=== PATIENT | female | born 1990 | race Caucasian/White ===

== ENCOUNTER 2021-07-18 08:06 | Outpatient (CLI) | payer BC, SELFPAY ==
--- NOTE | ~2021-07-18 | XR_ITS ---
EXAMINATION: XR hysterosalpingogram DATE: 07/18/2021 08:48 INDICATION: Infertility. TECHNIQUE: Fluoroscopy was performed by the radiologist during contrast infusion into the endometrial cavity of the uterus by the primary physician. Fluoroscopy exposure time was 0.2 minutes. The total number of images was 6. FINDINGS: The intrauterine cavity is normal in morphology. The fallopian tubes are normal in caliber. There is normal free intraperitoneal spillage of contrast on either side. IMPRESSION: 1. Normal hysterosalpingogram. Reviewed, dictated and finalized at location A. NG TABLE OPERATOR
== END 2021-07-18 08:07 | disposition home or self-care (01) ==
LOC: ANHIMG 08:17
PROVIDERS: PCP Family Medicine Adolescent Medicine; Visit Provider Obstetrics & Gynecology
DX: Z31.41 Encounter for fertility testing (principal)
CPT/HCPCS: 58340; 74740; Q9966

== ENCOUNTER 2021-09-24 14:43 | Outpatient (CLI) | payer BC, SELFPAY ==
--- NOTE | ~2021-09-24 | US_ITS ---
EXAMINATION: US OB <= 14 weeks fetus DATE: 09/24/2021 15:18 INDICATION: during first trimester with prior infertility. Establish dating of . TECHNIQUE: Real-time pelvic ultrasound utilizing transabdominal probe was performed. The kevin allred radiologist was not present for the study. COMPARISON: None. FINDINGS: The uterus measures 8.8 x 5.8 x 4.8 cm. There is an intrauterine gestational sac. A yolk sac and fet al pole are identified. The crown rump length measures 1.2 cm, which correlates with an estimated ges tational age of 7 weeks and 3 days. heart motion is identified measuring 138 beats per minute ( bpm) by M-mode Doppler. The right ovary measures 2.8 x 2.4 x 2.2 and contains a 1.3 cm anechoic cyst. Vascular flow with marlen rial waveform in the right ovary on color Doppler. The left ovary is not visualized. There is no free fluid in the pelvis. IMPRESSION: 1. Single living fetus with heart rate of 138 bpm. 2. Gestational age by ultrasound of 7 weeks 3 day(s) +/- 5 day(s) with ultrasound estimated date of delivery (VETO) of 05/10/2022. Reviewed, dictated and finalized at location A. GE ACCOUNTS AUDIT CLERK IMPRESSION: 1. Single living fetus with heart rate of 138 bpm. 2. Gestational age by ultrasound of 7 weeks 3 day(s) +/- 5 day(s) with ultraso und estimated date of delivery (VETO) of 05/10/2022.
== END 2021-09-24 14:44 | disposition home or self-care (01) ==
LOC: ANHIMG 14:44
PROVIDERS: PCP Family Medicine Adolescent Medicine; Visit Provider Obstetrics & Gynecology Gynecology
DX: O09.01 Supervision of pregnancy with history of infertility, first trimester (principal); Z3A.01 Less than 8 weeks gestation of pregnancy
CPT/HCPCS: 76801

== ENCOUNTER 2025-05-23 19:28 | Emergency (ER) | payer BC, SELFPAY ==
--- OUTSIDE RECORDS SUMMARY | 2025-05-23 19:30 | XMS_ITS | Clinical Summary ---
Author Organization [facility] Address [address] [place] [address] Care Team Providers Care Economics Consultant Name Role Phone No, Physician Primary Care Provider [phone] Joseph Ray MD Unavailable [phone] Ed Canela MD Unavailable + Kimberli Barrett MD Unavailable [phone] Allergies No known active allergies Medications vit 58-sird-ylrln-d smiley 27mg iron- 800 mcg-250 mg capsule Take by mouth Active acetaminophen (TYLENOL) 325 mg tablet Take 2 tablets (650 mg total) by mouth every 6 (six) hours as needed for pain 30 tablet 1 4 Active Additional Information Patient not taking.Reported on 06/16/2024 docusate sodium (COLACE) 100 mg capsuleIndicati ons:constipatio n,Stool Softener Take 1 capsule (100 mg total) by mouth 2 (two) times a day 30 capsule 1 4 Active Additional Information Patient not taking.Reported on 06/16/2024 ibuprofen (ADVIL,MOTRIN) 600 mg tabletIndicatio ns:Cramps Take 1 tablet (600 mg total) by mouth every 6 (six) hours as needed for pain 30 tablet 1 4 Active vit,vmiv14-tjma -folic (PRENATABS RX) tablet tabletIndicatio ns:Vitamin Deficiency Prevention Take 1 tablet by mouth daily 100 tablet 3 4 Active Active Problems Problem Noted Date Diagnosed Date Normal course 04/24/2024 Overview (04/25/2024): 04/24/24, PPD#1 (KR) S/p uncomplicated EBL 50 cc, Hgb 14.5 > 12.4 A+, Rubella immune Vital signs reviewed and notable for normal vitals Ambulating, tolerating PO, voiding spontaneously, lochia moderate, pain controlled MOF: MOC: deferred VTE ppx: The patient has the following MAJOR risk factors none and the following MINOR risk factors BMI 30-39. SCDs ordered for VTE prophylaxis. Dispo: Continue routine care. 04/25/24, PPD #2 (KR) AFVSS Meeting all milestones Minimal pain, moderate lochia going well Desires discharge home 38 weeks gestation of 04/23/2024 Normal labor 04/23/2024 Overview (04/23/2024): 04/23/2024, 1330 (JF): Luna Acevedo is a 34 y.o. female at 38w3d who is dated by L=11wk US and is being admitted for labor. Admit to L&D: Consents signed and placed in chart. Labs: T&S, CBC . Expectant management of labor. FWB: Continuous monitoring. tracing category I. ID: 3rd trimester HIV (>28 wga) negative on 02/11. GBS positive on 10/24, will start PNC now . RPR on admission: pending. History of genital HSV or HSV 1/2 seropositivity: No. Membrane Status: intact. Indications for UDS: none. Verbal consent obtained for UDS: Not indicated. MOF: Plans to breastfeed. Urine drug screen not indicated. Patient informed of results: N/A. MOC: Plans to use possible partner vasectomy for contraception. Pain management: Desires epidural, preparing now Post DVT prophylaxis: The patient has the following MAJOR risk factors none and the following MINOR risk factors BMI 30-39. SCDs will be ordered for VTE prophylaxis . Uterine contractions 04/23/2024 GBS bacteriuria 10/20/2023 Supervision of other normal , antepartu m 10/14/2023 Resolved Problems Problem Noted Date Diagnosed Date Resolved Date Normal labor 05/07/2022 05/09/2022 Overview (05/09/2022): 05/07/2022, 1750 (SK): 32-year-old presented to Labor and delivery at 39 weeks and 4 days with complaints of vaginal bleeding and painful contractions. Demonstrated cervical change in the OB ED. Rapidly progressed to complete dilation before epidural could be placed. Underwent uncomplicated spontaneous vaginal delivery - see delivery note for details. Supervision of normal first , antepartum 10/18/2021 05/09/2022 Overview (05/09/2022): Transfer from [place] IUI conception, EDC by 7 week ultrasound A+/I/-/-, HIV NR Panorama: low risk Anatomy: incomplete. EFW 15%ile. Completed at 22w5d (01/09) 23.8%, normal GCT:93 TDAP: 02/22/22 COVID vaccine completed GBS: negative Immunizations Immunization Administration Dates Next Due MMR 04/25/2024(Deferred: Contraindic ation) Tdap 02/12/2024,02/22/2022 Varicella 04/25/2024(Deferred: Patient Ref used) Surgical History Surgery Date Site/Laterality Comments CHOLECYSTECTOMY Family History Medical History Relation Name Comments Hyperlipidemia Mother Breast cancer Neg Hx Colon cancer Neg Hx Ovarian cancer Neg Hx Uterine cancer Neg Hx Relation Name Status Comments Father Alive Mother Alive Social History Tobacco Use Types Packs/Day Years Used Date Smoking Tobacco: Never Smokeless Tobacco: Never Tobacco Cessation:Counseling Given: Not Answered Social Connection and Isolation Panel Answer Date Recorded In a typical week, how many times do you talk on the phone with family, friends, or neighbors? More than three times a week 04/23/2024 How often do you get togethe r with friends or relatives? More than three times a week 04/23/2024 Attends [employer] Not on file 04/23 Active Member of Clubs or Organizations Not on f ile 04/23/2024 Attends Club or Organization Meetings Not on michelle e 04/23/2024 Marital Status Not on file 04/23/2024 AUDIT-C Answer Date Recorded Q1: How often do you have a drink containing alcohol? Never 04/23/2024 Q2: How many drinks containi ng alcohol do you have on a typical day when you are drinking? Patient does not drink Q3: How often do you have si x or more drinks on one occasion? Never 04/23/2024 Overall Financial Resource Strain (CARDIA) Answe r Date Recorded How hard is it for you to pa y for the very basics like food, housing, medical care, and heating? Not hard at all 04/23/2024 [facility] - Occupational Stress Questionnaire Answer Date Recorded Do you feel stress - tense, restless, nervous, or anxious, or unable to sleep at night because your mind is troubled all the time - these days? To some extent 04/23/2024 Hunger Vital Sign Answer Date Recorded Within the past 12 months, y ou worried that your food would run out before you got the money to buy more. Never true 04/23/20 24 Within the past 12 months, t he food you bought just didn't last and you didn't have money to get more. Never true 04/23/2024 PRAPARE - Transportation Answer Date Re corded In the past 12 months, has l ack of transportation kept you from medical appointments or from getting medications? No 04/08 In the past 12 months, has l ack of transportation kept you from meetings, work, or from getting things needed for daily living? No 04/23/2024 [place] Depression Scale Answer Date Recorded [place] Depression Scale Total 0 06/16/2024 The thought of harming myself has occurred to me . Never 06/16/2024 Housing Stability Vital Sign Answer Trevor e Recorded In the last 12 months, was t here a time when you were not able to pay the mortgage or rent on time? No 04/23/2024 Number of Times Moved in the Last Year Not on fi le 04/23/2024 At any time in the past 12 m [facility], were you homeless or living in a group home (including now)? No 04/23/2024 Personal Safety Answer Date Recorded Have you ever been in or are you currently in a harmful physical or emotional relationship or is someone making you feel afraid or unsafe? Denies 04/23/2024 Comments No Sex and Gender Information Value Date Recorded Sex Assigned at Not on file Legal Sex Female 1:48 PM CERTIFIED DRIVER EXAMINER Gender Identity Not on file Sexual Orientation Not on file Obstetrics History Para Term AB IAB SAB Ectopic Multiple Livin g Live Births 2 2 2 0 0 0 0 0 0 2 2 Date Outcome GA Total Labor Labor/2nd/3rd Weight Sex Type Anes PTL Nikki A1 A5 Name Clin 2021 Term 39w 4d 2.69 kg (5 lb 14.9 oz) F Vag-Sp ont None N Livin g 9 9 WON ACEVEDO Sekou Khary, MD Complications:Precipitous La bor (<3 hours) Delivery Location:[facility] ([facility] 2023 Term 38w 3d 0h 07m 0h 05m/0h 02m 2.81 kg (6 lb 3.1 oz) F Vagina l Epidur al N Livin g 8 9 Eyal r Brett Meza MD Complications:None Delivery Location:[facility] ([facility]) Last Filed Vital Signs Vital Sign Reading Time Taken Comments Blood Pressure 110/60 06/16/2024 3:27 PM CDT Pulse 66 04/25/2024 6:20 AM CDT Temperature 36.4 C (97.6 F) 04/25/2024 6:20 AM CDT Respiratory Rate 16 04/25/2024 6:20 AM CDT Oxygen Saturation 99% 04/25/2024 6:15 AM CDT Inhaled Oxygen Concentration - - Weight 104.3 kg (230 lb) 06/16/2024 3:27 PM CDT Height 167.6 cm (5' 6) 06/16/2024 3:27 PM CDT Body Mass Index 37.12 06/16/2024 3:27 PM CDT Plan of Treatment Health Maintenance Due Date Last Done Comments Cervical Cancer Screening 1991 Varicella Vaccines (1 of 2 - 13+ 2-dose series) 01/12/2004 Hepatitis B Screening 2009 Regular Well Visit/Exam 18-64 2009 HPV Vaccines (1 - 3-dose SCD M series) 2018 Covid-19 Vaccine (2024-2 6 season) 2025 11/25/2020, 10/28/2020 Influenza Vaccine (#1) 2025 07/10/2019 Depression Screening 06/16/2025 06/16/2024 DTaP/Tdap/Td Vaccine (3 - Td or Tdap) 02/11/2034 02/12/2024, 02/22/2022 Hepatitis C Screening Completed 10/14/2023 , 10/26/2021 Pneumococcal vaccine <65 Aged Out No longer eligible based on patient's age to complete this topic Procedures Procedure Name Priority Date/Time Associated Diagnosis Comments HEPATITIS C ANTIBODY Routine 10/14/2023 2:08 PM CERTIFIED DRIVER EXAMINER Encounter for supervision of other normal in first trimester from Last 3 Months or Most Recently Relevant to Health Maintenance Results * Hepatitis C antibody Blood (10/14/2023 2:08 PM CERTIFIED DRIVER EXAMINER) Hep C Ab Nonreactive Nonreactive PEREZ HAJI Comment: Antibodies to HCV not detected. Does NOT exclude the possibility of recent exposure to HCV. Current interpretive data was last revised on 22 Interpretive Data Nonreactive: Antibodies to HCV not detected. Does NOT exclude the possibility of recent exposure to HCV. Equivocal: Equivocal for HCV antibodies. Supplemental molecular testing will be automatically performed to determine infection status in accordance with current CDC screening recommendations. Reactive: Positive for HCV antibodies. This may represent current or past HCV infection. Supplemental molecular testing will be automatically performed to determine current infection status in accordance with current CDC screening recommendations. Interpretive data was last revised on 2019. Blood 10/14/2023 2:08 PM CERTIFIED DRIVER EXAMINER 10/14/2023 5:06 PM CERTIFIED DRIVER EXAMINER Lisa ELDER [facility] MICROBI OLOGY - GENERAL ORDERABLES Edited Result - Final PEREZ [address] [facility] Department [place] [address] from Last 3 Months or Most Recently Relevant to Health Maintenance Insurance [address] [place], [place] [id number] [facility] Advance Directives For more information, please contact: [phone] * Full Code (Latest Code Status on File) Date Activated Date Inactivated Comments 04/23/2024 2:52 PM 04/25/2024 3:30 PM * Full Code Date Activated Date Inactivated Comments 04/23/2024 10:12 AM 04/23/2024 2:52 PM Full CPR in case of cardiopulmonary arrest * Full Code Date Activated Date Inactivated Comments 05/07/2022 7:33 PM 05/09/2022 6:57 PM * Full Code Date Activated Date Inactivated Comments 05/07/2022 3:48 PM 05/07/2022 7:33 PM Full CPR in case of cardiopulmonary arrest Care Teams Economics Consultant Relationship Specialty Start Date End Date No, Physician PCP - General 10/28/23 Joseph Ray MD [address] [place] [address] 10/28/23 Ed Canela MD [address] [place] [address] Family Medicine 05/07/22 Kimberli Barrett MD [address] [place] [id number] Consulting Physician Obstetrics and Gynecology 04/25/24
--- NOTE | 2025-05-23 19:39 | ED_ITS ---
HPI - Female Genitourinary General Chief complaint: Urogenital-Female Stated complaint: UTI Time Seen by Provider: 05/23/25 19:39 Source: patient Mode of arrival: ambulatory Limitations: no limitations History of Present Illness HPI Narrative: 35-year-old female presents with complaint of urinary frequency, urgency, dysuria for 3 days. Afebrile. No abdominal or back pain. Denies . No concern for STI. All systems reviewed and negative except as noted above. Related Data Allergies Allergy/AdvReac Type Severity Reaction Status Date / Time No Known Allergies Allergy Verified 05/23/25 19:35 PMFSH Comments At time of signature, agree with nursing past medical, surgical, social and family history. There is no relevant family history pertinent to the presenting complaint. Exam Narrative: GENERAL: This is a well-nourished, well-developed patient, in no apparent distress. HEAD: normocephalic, atraumatic. EYES: PERRL. Sclera clear/white. Vision is grossly intact. EARS: External ears normal NOSE: External nose normal NECK: Neck supple, non-tender without lymphadenopathy, masses or thyromegaly. CARDIOVASCULAR: Regular rate and rhythm without murmurs, gallops, or rubs. RESPIRATORY: Clear to auscultation. Breath sounds equal bilaterally. No wheezes, rales, or rhonchi. SKIN: warm, Dry, intact with no suspicious lesions or rash, good texture and turgor. NEURO: awake, alert, and oriented to person, place and time. There were no obvious focal neurologic abnormalities. EXTREMITIES: No joint tenderness, effusion, or edema noted. BACK: No CVA tenderness. Course Course Level of Care: Express Care Visit Vital Signs Vital signs: Vital Signs Temperature 36.6 C 05/23/25 19:40 Pulse Rate 76 05/23/25 19:40 Respiratory Rate 16 05/23/25 19:40 Blood Pressure 127/78 05/23/25 19:40 Pulse Oximetry 99 05/23/25 19:40 Oxygen Delivery Room Air 05/23/25 19:40 Temperature 36.6 C 05/23/25 19:40 Pulse Rate 76 05/23/25 19:40 Respiratory Rate 16 05/23/25 19:40 Blood Pressure 127/78 05/23/25 19:40 Pulse Oximetry 99 05/23/25 19:40 Oxygen Delivery Room Air 05/23/25 19:40 Reviewed MDM - Female Genitourinary MDM Narrative Medical decision making narrative: urinalysis 1+ leukocytes. Urine culture ordered. Will prescribe antibiotic to treat patient for urinary tract infection due to patient's symptoms. Patient is well-appearing, nontoxic. Patient agrees with plan of care. Differential Diagnosis Differential diagnosis: Likely urinary tract infection Lab Data Labs: Lab Results 05/23/25 Range/Units 19:41 POC Urine Color Yellow POC Urine Clarity Cloudy POC Urine pH 7.0 POC Ur Specif [place] 1.025 POC Urine Protein Negative (Negative) POC Ur Glucose (UA) Negative (Negative) POC Urine Ketones Negative (Negative) POC Urine Blood Negative (Negative) POC Urine Nitrite Negative (Negative) POC Urine Bilirubin Negative (Negative) POC Urine Urobilinogen 0.2 POC U Leukocyte Esteras 1+ (Negative) Discharge Plan Discharge Clinical Impression: Urinary tract infection Patient Disposition: Home Condition: Stable Instructions: Antibiotic Form, Urinary Tract Infection in Women (ED) Additional Instructions: Take antibiotic as prescribed until gone. Drink at least 64 oz water a day. May take [id number] azo as directed on packaging to treat urinary symp toms. See your primary care physician if symptoms are not improving. Patient Language: Singaporean Prescriptions: New amoxicillin-pot clavulanate [Augmentin] 500-125 mg tablet 1 tablet PO BID 5 Days Qty: 10 0RF Follow-up/Referrals: Ed Canela MD [Primary Care Provider, [facility]] Time of Disposition: 19:44
[2025-05-23 19:40] VITALS: BP 127/78; PULSE 76; RESP 16; TEMP 36.6; O2SAT 99
[2025-05-23 19:42] LABS: EDUAAPPEAR Cloudy; EDUABILI Negative (Negative); EDUABLOOD Negative (Negative); EDUACOLOR1 Yellow; EDUAGLUCOSE Negative (Negative); EDUAKETONE Negative (Negative); EDUALEUKO 1+ (Negative); EDUANITRATE Negative (Negative); EDUAPH 7.0; EDUAPROTEIN Negative (Negative); EDUASPGRAVITY 1.025; EDUAUROBILI 0.2
== END 2025-05-23 19:47 | disposition home or self-care (01) ==
PROVIDERS: Emergency Provider Nurse Practitioner Family; PCP Family Medicine Adolescent Medicine
DX: N39.0 Urinary tract infection, site not specified (principal); Z86.16 Personal history of COVID-19
CPT/HCPCS: 81003; 87086; 99213; G0463